=== PATIENT | female | born 1995 | race Caucasian/White ===

== ENCOUNTER 2018-08-03 15:03 | Emergency (ER) | payer BC ==
[2018-08-03 16:22] VITALS: BP 109/46
--- NOTE | 2018-08-03 16:52 | UC ---
Throat Pain/Nasal Bradley HPI - HPI Summary HPI Summary: 22-year-old female presents with 2 day history of sore throat and white spots on her tonsils. Denies fever, chills, ear pain, nasal congestion, nasal drainage, dysphagia, cough, chest pain, shortness of breath, abdominal pain, nausea, or vomiting. - History of Current Complaint Chief Complaint: UCGeneralIllness Stated Complaint: THROAT CONCERN Time Seen by Provider: 08/03/18 16:24 Hx Obtained From: Patient Hx Last Menstrual Period: JUST STARTED NEW BC 06/26/18 ?: No Onset/Duration: Gradual Onset, Lasting Days - 2 Severity: Moderate Pain Intensity: 7 Cough: None Associated Signs & Symptoms: Negative: Dysphagia, Drooling, Hoarseness, Sinus Discomfort, Nasal Discharge, Fever, Vomiting, Rash - Allergies/Home Medications Allergies/Adverse Reactions: Allergies Allergy/AdvReac Type Severity Reaction Status Date / Time No Known Allergies Allergy Verified 08/03/18 16:17 Home Medications: Home Medications Acetaminophen [APAP] 650 mg PO ONCE 08/03/18 [History Confirmed 08/03/18] Norgestimate-Ethinyl Estradiol [Ortho-Cyclen 28 Tablet] 1 each PO DAILY [History Confirmed 08/03/18] PMH/Surg Hx/FS Hx/Imm Hx Previously Healthy: Yes - denies significant past medical history - Surgical History Surgical History: None - Family History Family History: Noncontributory - Social History Occupation: Student Lives: Dormitory/Roommates Alcohol Use: Occasionally Substance Use Type: None Smoking Status (MU): Never Smoked Tobacco Review of Systems Constitutional: Negative Skin: Negative Eyes: Negative ENT: Sore Throat Respiratory: Negative Cardiovascular: Negative Gastrointestinal: Negative Is Patient Immunocompromised?: No All Other Systems Reviewed And Are Negative: Yes Physical Exam Triage Information Reviewed: Yes Appearance: Well-Appearing, No Pain Distress, Well-Nourished Vital Signs: Initial Vital Signs Temp 97.9 F 08/03/18 16:13 Pulse 96 08/03/18 16:13 Resp 15 08/03/18 16:13 BP 109/46 08/03/18 16:13 Pulse Ox 99 08/03/18 16:13 Vital Signs Reviewed: Yes Eyes: Positive: Conjunctiva Clear. Negative: Discharge ENT: Positive: Hearing grossly normal, Pharyngeal erythema, TMs normal, Tonsillar swelling - 2+, Tonsillar exudate - Left tonsil, Uvula midline, Other - Malodorous breath. Negative: Nasal congestion, Nasal drainage, Trismus, Muffled voice, Sinus tenderness Neck: Positive: Supple, Nontender, Enlarged Nodes @ - Mild anterior cervical Respiratory: Positive: Lungs clear, Normal breath sounds, No respiratory distress Cardiovascular: Positive: RRR, No Murmur Neurological: Positive: Alert Skin Exam: Normal Throat Pain/Nasal Course/Dx - Course Course Of Treatment: 22-year-old female presents with 2 day history of sore throat. Afebrile. Exam remarkable for pharyngeal erythema, 2+ tonsillar edema , tonsillar exudate on the left tonsil, and some malodorous breath. Rapid strep test was negative. Symptoms are likely from a viral pharyngitis however with the tonsillar edema, tonsillar exudate, malodorous breath, and anterior cervical lymphadenopathy will send a throat culture. Recommend symptomatic treatment pending throat culture results. Warning symptoms were reviewed the patient. Verbalizes understanding and agrees with plan of care. - Differential Dx/Diagnosis Differential Diagnosis/HQI/PQRI: Mononucleosis, Pharyngitis - strep, Tonsillitis Provider Diagnoses: Viral pharyngitis Discharge - Sign-Out/Discharge Documenting (check all that apply): Patient Departure All imaging exams completed and their final reports reviewed: No Studies - Discharge Plan Condition: Stable Disposition: HOME Patient Education Materials: Pharyngitis (ED) Referrals: No Primary Care Phys,NOPCP [Primary Care Provider] - Additional Instructions: Your rapid strep test in the clinic today was negative. Your symptoms are likely from a viral infection. Viral infections do not respond to antibiotics and typically run their course over 7-10 days. I will send a throat culture to also check for strep. It will take 48-72 hours before we have these results. We will contact you if this shows a need to be on antibiotics. Use salt water gargles several times a day for your sore throat. Take acetaminophen (Tylenol) or ibuprofen (Advil, Motrin) according to directions as needed for fever or pain. You may also use Chloraseptic spray or Cepacol lozenges for some temporary pain relief from your sore throat. Follow-up at the [facility] or with your primary care provider in 7 days if symptoms persist. Seek immediate medical attention if you have a persistent fever greater than 100.5 F despite taking acetaminophen or ibuprofen, you are unable to swallow, has difficulty breathing, or have any worsening of symptoms. - Billing Disposition and Condition Condition: STABLE Disposition: Home
== END 2018-08-03 17:08 | disposition home or self-care (01) ==
LOC: UCCORT 15:03
DX: J02.9 Acute pharyngitis, unspecified (principal)
CPT/HCPCS: 87070; 87651; 99201; G0463

== ENCOUNTER 2018-12-15 17:32 | Emergency (ER) | payer BC | END 2018-12-15 18:07 | disposition left against medical advice (07) | LOC: UCCORT 17:32 | DX: Z53.21 Procedure and treatment not carried out due to patient leaving prior to being seen by health care provider (principal) ==

== ENCOUNTER 2018-12-15 20:43 | Emergency (ER) | payer BC ==
[2018-12-15 20:56] VITALS: BP 122/68
--- NOTE | 2018-12-15 21:40 | UC ---
Complaint Female HPI - HPI Summary HPI Summary: 22-year-old female presents requesting STI screening. States she has been having unprotected sex and 2 days ago she noted a small amount of blood on the tissue paper when she wiped after intercourse. States she has had vaginal intercourse with 3 different male partners. Denies fever, chills, abdominal pain, nausea, vomiting, dysuria, frequency, urgency, hematuria, vaginal discharge, genital lesions, or dyspareunia. She is on oral control. Last menstrual period 11/23/2018. - History Of Current Complaint Chief Complaint: UCSTDScreening Stated Complaint: PERSONAL Time Seen by Provider: 12/15/18 21:24 Hx Obtained From: Patient Hx Last Menstrual Period: 11/23/18 Pain Intensity: 0 - Allergies/Home Medications Allergies/Adverse Reactions: Allergies Allergy/AdvReac Type Severity Reaction Status Date / Time No Known Allergies Allergy Verified 12/15/18 20:55 PMH/Surg Hx/FS Hx/Imm Hx Previously Healthy: Yes - Denies significant PMH - Surgical History Surgical History: None - Family History Known Family History: Positive: Non-Contributory Family History: Noncontributory - Social History Occupation: Student Lives: Dormitory/Roommates Alcohol Use: Rare Substance Use Type: None Smoking Status (MU): Never Smoked Tobacco Review of Systems All Other Systems Reviewed And Are Negative: Yes Constitutional: Negative: Fever, Chills Skin: Negative: Rash ENT: Positive: Negative Respiratory: Positive: Negative Cardiovascular: Positive: Negative Gastrointestinal: Negative: Abdominal Pain, Vomiting, Diarrhea, Nausea Genitourinary: Negative: Dysuria, Hematuria, Frequency, Urgency, Vaginal/Penile Burning, Vaginal/Penile Itching, Vaginal/Penile Discharge, Vaginal/Penile Pain, Vaginal/Penile Tenderness, Ulceration/Lesion Musculoskeletal: Positive: Negative Neurological: Positive: Negative Is Patient Immunocompromised?: No Physical Exam Triage Information Reviewed: Yes Appearance: Well-Appearing, No Pain Distress, Well-Nourished Vital Signs: Initial Vital Signs Temp 98.5 F 12/15/18 20:53 Pulse 95 12/15/18 20:53 Resp 16 12/15/18 20:53 BP 122/68 12/15/18 20:53 Pulse Ox 100 12/15/18 20:53 Vital Signs Reviewed: Yes Respiratory: Positive: Lungs clear, Normal breath sounds, No respiratory distress Cardiovascular: Positive: RRR, No Murmur, Pulses Normal, Brisk Capillary Refill Abdomen Description: Positive: Nontender, No Organomegaly, Soft. Negative: Distended, Guarding Bowel Sounds: Positive: Present Pelvic Exam: Positive: Other - Patient deferred Musculoskeletal Exam: Normal Neurological Exam: Normal Psychological Exam: Normal Skin Exam: Normal Complaint Female Dx - Course Course Of Treatment: 22-year-old female presents requesting STI screening. States she has been having unprotected sex and 2 days ago she noted a small amount of blood on the tissue paper when she wiped after intercourse. States she has had vaginal intercourse with 3 different male partners. Denies fever, chills, abdominal pain, nausea, vomiting, dysuria, frequency, urgency, hematuria, vaginal discharge, genital lesions, or dyspareunia. She is on oral control. Last menstrual period 11/23/2018. Afebrile. Vital signs stable. Exam was unremarkable. Patient did defer pelvic exam. Elected to self swab for Trichomonas testing. Specimens for gonorrhea, chlamydia, and syphilis were also collected and sent. Patient declined HIV testing. She is to follow-up with her primary care provider as needed. Anticipatory guidance, safe sex practices, and warning symptoms are all reviewed with the patient. Verbalizes understanding and agrees with plan of care. - Differential Dx/Diagnosis Differential Diagnosis/HQI/PQRI: Pelvic Inflammatory Disease, , Sexually Transmitted Disease Provider Diagnosis: Routine screening for STI (sexually transmitted infection) Discharge - Sign-Out/Discharge Documenting (check all that apply): Patient Departure All imaging exams completed and their final reports reviewed: No Studies - Discharge Plan Condition: Stable Disposition: HOME Patient Education Materials: Sexually Transmitted Diseases (ED), Condom Use (ED ), Safe Sex (ED) Referrals: No Primary Care Phys,NOPCP [Primary Care Provider] - Additional Instructions: We will perform screening for sexually transmitted infections including gonorrhea, chlamydia, syphilis, and trichimonas as you requested. We will contact you and start you on appropriate treatment if any of these are positive. You declined HIV testing today. The urine test performed in the clinic today was negative. I have provided you information on sexually transmitted infections and safe sex practices. Be sure to review this information. Follow up with your primary care provider as needed. - Billing Disposition and Condition Condition: STABLE Disposition: Home
--- NOTE | 2018-12-17 07:16 | UC ---
- Progress Note Progress Note: please contact pt re + vag yeast infection diflucan ERxed Course/Dx - Diagnoses Provider Diagnoses: Routine screening for STI (sexually transmitted infection) Discharge - Sign-Out/Discharge Documenting (check all that apply): Post-Discharge Follow Up All imaging exams completed and their final reports reviewed: No Studies - Discharge Plan Condition: Stable Disposition: HOME Prescriptions: Fluconazole 150 MG (NF) [Diflucan 150 mg (NF)] 150 mg PO ONCE #1 tab Patient Education Materials: Sexually Transmitted Diseases (ED), Condom Use (ED ), Safe Sex (ED) Referrals: No Primary Care Phys,NOPCP [Primary Care Provider] - Additional Instructions: We will perform screening for sexually transmitted infections including gonorrhea, chlamydia, syphilis, and trichimonas as you requested. We will contact you and start you on appropriate treatment if any of these are positive. You declined HIV testing today. The urine test performed in the clinic today was negative. I have provided you information on sexually transmitted infections and safe sex practices. Be sure to review this information. Follow up with your primary care provider as needed. - Billing Disposition and Condition Condition: STABLE Disposition: Home
[2018-12-19 12:43] LABS: Neisseria gonorrhoeae (GC) RNA Negative (Negative)
== END 2018-12-15 21:47 | disposition home or self-care (01) ==
LOC: UCCORT 20:43
DX: Z11.3 Encounter for screening for infections with a predominantly sexual mode of transmission (principal); B37.3 Candidiasis of vulva and vagina
CPT/HCPCS: 36415; 84702; 86592; 87480; 87491; 87510; 87591; 87660; 99211; G0463

== ENCOUNTER 2019-06-06 19:11 | Emergency (ER) | payer BC ==
[2019-06-06 19:23] VITALS: BP 125/67
--- NOTE | 2019-06-06 19:56 | ED ---
GI/ HPI - HPI Summary HPI Summary: 23 yr old female with dysuria, hesitancy of urination. Onset about two days ago. Symptoms are moderate. NO fever or chills. NO back pain. No NVD. No other complaints. - History of Current Complaint Chief Complaint: UCGU Time Seen by Provider: 06/06/19 19:31 Stated Complaint: URINARY Hx Last Menstrual Period: 11/23/18 Pain Intensity: 0 - Allergy/Home Medications Allergies/Adverse Reactions: Allergies Allergy/AdvReac Type Severity Reaction Status Date / Time No Known Allergies Allergy Verified 06/06/19 19:23 PMH/Surg Hx/FS Hx/Imm Hx Endocrine/Hematology History: Denies: Hx Diabetes, Hx Thyroid Disease Cardiovascular History: Denies: Hx Hypertension Respiratory History: Denies: Hx Asthma, Hx Chronic Obstructive Pulmonary Disease (COPD) GI History: Denies: Hx Ulcer Infectious Disease History: No Infectious Disease History: Denies: Hx Hepatitis, Hx Human Immunodeficiency Virus (HIV), Traveled Outside the [place] in Last 30 Days - Family History Known Family History: Positive: None, Non-Contributory Family History: Noncontributory - Social History Occupation: Student Alcohol Use: Occasionally Substance Use Type: Reports: None Smoking Status (MU): Never Smoked Tobacco Review of Systems Constitutional: Negative Positive: dysuria, other - hesitancy All Other Systems Reviewed And Are Negative: Yes Physical Exam Triage Information Reviewed: Yes Vital Signs On Initial Exam: Initial Vitals Temp Pulse Resp BP Pulse Ox 98 F 76 15 125/67 100 06/06/19 19:20 06/06/19 19:20 06/06/19 19:20 06/06/19 19:20 06/06/19 19:20 Vital Signs Reviewed: Yes Appearance: Positive: Well-Appearing, No Pain Distress Skin: Positive: Warm, Skin Color Reflects Adequate Perfusion Head/Face: Positive: Normal Head/Face Inspection ENT: Positive: Normal ENT inspection Neck: Positive: Nontender Respiratory/Lung Sounds: Positive: Clear to Auscultation, Breath Sounds Present Cardiovascular: Positive: RRR. Negative: Murmur Abdomen Description: Negative: Distended Musculoskeletal: Positive: Strength/ROM Intact Neurological: Positive: Sensory/Motor Intact, Alert, Oriented to Person Place, Time, CN Intact II-III Psychiatric: Positive: Normal Diagnostics - Vital Signs Vital Signs Temp Pulse Resp BP Pulse Ox 06/06/19 19:20 98 F 76 15 125/67 100 - Laboratory Lab Results: Lab Results 06/06/19 06/06/19 Range/Units 19:32 19:37 POC Urine Color Yellow POC Urine Clarity Clear POC Urine pH 6.0 (5-9) POC Ur Specif Rosenberg 1.015 (1.010-1.030) POC Urine Protein Negative (Negative) POC Ur Glucose (UA) Negative (Negative) POC Urine Ketones Negative (Negative) POC Urine Blood Trace-intact A (Negative) POC Urine Nitrite Negative (Negative) POC Urine Bilirubin Negative (Negative) POC Urine Urobilinogen 0.2 (Negative) POC U Leukocyte Esteras 1+ A (Negative) POC Ur Test Negative (Negative) Lab Statement: Any lab studies that have been ordered have been reviewed, and results considered in the medical decision making process. GIGU Course/Dx - Course Course Of Treatment: 23 yr old with UTI. Rx bactrim - Diagnoses Provider Diagnoses: UTI (urinary tract infection) Discharge ED - Sign-Out/Discharge Documenting (check all that apply): Patient Departure All imaging exams completed and their final reports reviewed: No Studies - Discharge Plan Condition: Good Disposition: HOME Prescriptions: Sulfamethox/Trimethoprim DS* [Bactrim DS 800/160 TAB*] 1 tab PO BID #14 tab Patient Education Materials: Urinary Tract Infection in Women (ED) Referrals: No Primary Care Phys,NOPCP [Primary Care Provider] - [facility] [Outside] - Billing Disposition and Condition Condition: GOOD Disposition: Home
--- NOTE | 2019-06-10 07:26 | UC ---
- Progress Note Progress Note: + urine cx but only a 1-10K e coli. sens to bactrim that she was prescribed. cont abx. Course/Dx - Diagnoses Provider Diagnoses: UTI (urinary tract infection) Discharge ED - Sign-Out/Discharge Documenting (check all that apply): Post-Discharge Follow Up All imaging exams completed and their final reports reviewed: No Studies - Discharge Plan Condition: Good Disposition: HOME Prescriptions: Sulfamethox/Trimethoprim DS* [Bactrim DS 800/160 TAB*] 1 tab PO BID #14 tab Patient Education Materials: Urinary Tract Infection in Women (ED) Referrals: [facility] [Outside] No Primary Care Phys,NOPCP [Primary Care Provider] - - Billing Disposition and Condition Condition: GOOD Disposition: Home
== END 2019-06-06 19:59 | disposition home or self-care (01) ==
LOC: UCCORT 19:11
DX: N39.0 Urinary tract infection, site not specified (principal)
CPT/HCPCS: 81003; 84702; 87077; 87086; 87186; 99212; G0463